=== PATIENT | female | born 1980 | race African-American/Black ===

== ENCOUNTER 2019-11-20 05:55 | Inpatient (IN) | payer MEDICAID, OTHER, SELFPAY ==
--- NOTE | 2019-11-20 04:49 | PDOC.FPROB ---
FMR OB H&P: HPI - History of Present Illness Chief Complaint: rLTCS for AMA, uncontrolled A2GDM, & cHTN in Indentification: History of Present Illness: 39YO @ 37.1 WGA by LMP c/w ? sono presenting for a MARGO rLTCS due to AMA , uncontrolled A2GDM, & cHTN in . Reports feeling well this AM. Denies any VB, LOF or abnormal discharge. + FM. No headache, SOB, chest pain, blurred vision, or LE edema. Primary Care Physician: ROSEMARIE Brown FMR OB H&P: Current - Care : 4 Para: 2011 Gestational age: 37.1 Due date: 12/10/19 Dating Criteria: LMP c/w 9.3 week sono Total weight gain: 36 lbs. Course/Complications: AMA, LGA & breech fetus, uncontrolled A2GDM, cHTN in , Hx SAB, Hx LTCS x2, Rh negative, GBS +, Class 2 obesity - OB Labs Blood type: AB RH: negative Antibody Screen: negative HIV: negative RPR: negative HepBsAg: negative Rubella: immune Quad screen: unknown Urine drug screen: not done Gonorrhea: negative Chlamydia: negative Pap Smear: NILM 3 hour GTT: 2hr GTT: fasting 112, 1hr 227, 2hr 223 A1c: 5.5 on 10/30/19 GBS: positive H&H: 12.4/35.6 on 10/30/19 Platelets: Plt 260 Additional labs: TSH- 1.9 on 06/12/19 Urine Protein:Cr--> 199 on 10/30/19 Cr 0.4 & AST/ALT 06/07 on 10/30/19 - First Trimester Ultrasound First trimester: viable sIUP - Anatomy Survey Anatomy survey: viable male fetus w/ normal anatomy; transverse w/ head to maternal left & LGA w / Hadlock >99%; anterior placenta - Additional Ultrasound Additional: f/u growth US on 11/14/19 97% by Hadlock & transverse with head to maternal right FMR OB H&P: History - Past Medical History PMH: HTN, Class II obesity - OB History OB History: preg #1: SAB @ ~5 WGA preg #2: primary LTCS in 2011 for NRFHTs @ 40 WGA preg #3: rLTCS in 2015 @ 39 WGA - [employer]OS[employer] History [employer] History: No Hx of STIs or abnormal paps - Surgical History Sx History: LTCS x2 - Social History Social History: No TAD. - Family History Family History: Mother- DMII FMR OB H&P: Medications - Current Home Medications: Medication Instructions Recorded Confirmed Type 21/Iron Fu/Folic Acid 1 tablet PO DAILY 01/06/15 11/20/19 History [ Complete Caplet] metFORMIN [Glucophage] 2 tab PO BID 11/20/19 11/20/19 History Allergies/Adverse Reactions: Allergies Allergy/AdvReac Type Severity Reaction Status Date / Time No Known Allergies Allergy Verified 11/20/19 06:32 FMR OB H&P: ROS - Review of Systems General: denies: fever/chills, fatigue Eyes: denies: vision changes, floaters ENT: denies: nasal congestion, rhinorrhea, sore throat Cardiovascular: denies: chest pain, edema Respiratory: denies: cough, shortness of breath Gastrointestinal: denies: abdominal pain, nausea, vomiting Genitourinary (Female): denies: vaginal discharge, vaginal bleeding, contractions Neurologic: denies: headache Integumentary: denies: itching, rash FMR OB H&P: Vital Signs - Maternal Vital signs: WNLs - Heart Tones Baseline: 130 Variability: moderate Acceleration: present Deceleration: absent King contractions every: none noted FMR OB H&P: Physical Exam - Physical Exam General: NAD, awake, alert and oriented HEENT: normocephalic and atraumatic, grossly normal vision, grossly normal hearing Neck: supple, FROM Heart: RRR, normal S1/S2, no murmurs/rubs/gallops General: CTAB, no respiratory distress, good air movement, no rales/rhonchi, no wheezing, no retractions Abdomen: gravid, non-tender Neurological: cranial nerves II through XII intact, sensation to pain,touch and proprioception grossly normal, no focal deficit Skin: no rash, good tugor Psychiatric: intact recent and remote memory, good judgement and insight, normal mood and affect - Pelvic Exam Vulva: normal hair distribution, appropriate jemal stage, no masses, no lesions , no discharge, no blood Membranes: intact Presentation: breech but slightly transverse facing maternal right Estimated Weight: 9 lbs FMR OB H&P: Results - Labs Lab results: H/H 12.9/37.9 Accucheck 90 FMR OB H&P: A/P - Problem List (1) History of delivery, currently Status: Chronic Code(s): O34.219 - MATERNAL CARE FOR UNSP TYPE SCAR FROM PREVIOUS DEL (2) White classification A2 gestational diabetes mellitus (GDM), insulin controlled Status: Acute Code(s): O24.414 - GESTATIONAL DIABETES IN , INSULIN CONTROLLED (3) Chronic hypertension during Status: Chronic Code(s): O10.919 - UNSP PRE-EXISTING HTN COMP , UNSP TRIMESTER (4) LGA (large for gestational age) fetus Status: Acute Code(s): [id number] - (5) Rh negative status during Status: Chronic Code(s): O26.899 - OTH RELATED CONDITIONS, UNSPECIFIED TRIMESTER; Z67.91 - UNSPECIFIED BLOOD TYPE, RH NEGATIVE Qualifiers: Trimester: third trimester Qualified Code(s): O26.893 - Other specified related conditions, third trimester; Z67.91 - Unspecified blood type, Rh negative (6) Obesity, Class II, BMI 35-39.9 Status: Chronic Code(s): E66.9 - OBESITY, UNSPECIFIED (7) Advanced maternal age (AMA), 40 years or greater Status: Chronic Code(s): DMB1208 - (8) Positive GBS test Status: Acute Code(s): B95.1 - STREPTOCOCCUS, GROUP B, CAUSING DISEASES CLASSD ELSWHR (9) History of spontaneous , currently Status: Chronic Code(s): O09.299 - SUPRVSN OF PREG W POOR REPRODCTV OR OBSTET HISTORY, UNSP TRI Disposition: 39YO @ 37.1 WGA presenting for a MARGO rLTCS for AMA, uncontrolled A2GDM & cHTN in . rLTCS @ 37.1 WGA: - Recommended by MFM 2/2 multiple complicating factors as listed above, namely uncontrolled A2GDM with a known LGA fetus. - Last presentation noted in office was breech. Will perform bedside sono prior to operation this AM to reassess presentation & plan for delivery accordingly. Hx LTCS x2: Aware, no evidence of pathology on sonos w/ MFM. Anterior placenta. SAB x1: Aware. Fam hx of Austim (in son): Aware. AMA: Patient has been on ASA since just over 12 WGA & following with MFM this . NIPT declined. ECHO WNL. BMI 40: Obesity Class II. Patient navigator has been following patient outpatient in clinic this . TSH 1.93. Total wt gain 36 lbs. Rh neg: Antibody screen negative x2. Denies trauma or bleeding. Last Rhogam given on 09/24/19. Will need rhogam again within 72 hrs of delivery if Rh + fetus. cHTN: Patient has not been monitoring at home but has been taking ASA for pre-e PPX. Pre-e labs done on 10/30/19 were WNL with prot:cr ratio 0.199. A2GDM: Uncontrolled per minimal BG logs reviewed in the office on metformin 1000 BID & Novolin 15U HS. Repeat A1c 5.5 on 10/30/19. Accucheck on arrival 90. LGA infant: Hadlock >99%tile on anatomy sono with repeat 97%tile on 11/14. GBS positive - No need for intrapartum PPX 2/ delivery. Discussion: Date/Time: 11/20/19 3701 This H&P was discussed with Dr. Lamb who agrees with the above documentation and plan. Addendum - Attending - Attending Attestation Date/Time: 11/20/19 1006 I personally evaluated the patient and discussed the management with Dr. Brown. I agree with the History, Examination, Assessment and Plan documented above with any addition or exceptions noted below. See my note.
[~2019-11-20 05:55] MED LIST: Ondansetron PF 4 MG/2 ML Vial IVP PRN; Promethazine HCl 25 MG/ML VIAL IM PRN; hydrALAZINE 20 MG/ML VIAL SLOW IVP PRN
[2019-11-20] MEDS ORDERED: Bicitra 30 ML UDCUP PO SCH (06:00)
[2019-11-20] MEDS ORDERED: CEFAZOLIN 2 GM in Premix Bag 1 BAG IVPB SCH (06:00)
[2019-11-20 06:30] VITALS: BMI 40.6
[2019-11-20 06:40] LABS: Hemoglobin 12.9 g/dL (12.0-16.0); Mean Corpuscular HGB CONC 34.1 g/dL (32.0-36.0); Mean Corpuscular Hemoglobin 30.9 pg (27.0-31.0); Mean Corpuscular Volume 90.6 fL (78.0-98.0); Mean Platelet Volume 9.3 fL (7.4-10.4); Platelet Count 247 thou/uL (130-400); RBC Distribution Width 13.2 % (11.5-14.5); Red Blood Cell (RBC) Count 4.19 mill/uL (4.20-5.40); White Blood Cell (WBC) Count 7.4 thou/uL (4.8-10.8)
[2019-11-20] MEDS: Lactated Ringer's 1,000 ML IV SCH ×4 (06:40→16:25)
[2019-11-20] MEDS ORDERED: Ondansetron PF 4 MG/2 ML Vial ONE ×2 (07:00→09:33)
[2019-11-20] MEDS ORDERED: MORPHINE 5 MG/10 ML PF VIAL ONE (07:01)
[2019-11-20] MEDS ORDERED: Oxytocin 10 UNITS/ML VIAL ONE (07:01)
[2019-11-20 07:23] LABS: HBSAg Index 0.14 S/CO (0-0.99); Hep B Surf Ag Non-Reactive S/CO (NonReactive); Syphilis Antibody Nonreactive (Nonreactive); Syphilis Antibody Index 0.04 S/CO (<1.00 Non-Reactive)
--- NOTE | 2019-11-20 07:38 | PDOC.BPN ---
- Brief Progress Note @ 37w1d by good dates here for repeat CD. She is doing well this AM, no complaints. Uncontrolled GDM cHTN AMA Oblique, breech, back up on today's POCUS 1. Plan for repeat CD today. r/b/a/i reviewed including pain, bleeding, need for transfusion, infection, damage to bowel, bladder, and other internal organs , need for reoperation and prolonged hospitalization, as well as more morbid complications. 2. Anterior placenta with no reported pathology per prior MFM scans. 3. To OR when ready.
[2019-11-20] MEDS ORDERED: Midazolam HCl 2 mg/2 ml Vial ONE (08:34)
[2019-11-20 08:38] LABS: Actual Bicarbonate (HCO3v) 26 mEq/L (22-28)
[2019-11-20 08:40] LABS: Actual Bicarbonate (HCO3a) 27.3 mEq/L (22-28); Base Excess (BEa) -8.2 mEq/L (-2.0 to +3.0)
[2019-11-20 08:42] LABS: pH (Cord, venous) 7.05 (7.32-7.43)
[2019-11-20] MEDS ORDERED: Naloxone HCl 0.4 mg/ml Vial IVP PRN ×2 (09:18)
[2019-11-20] MEDS ORDERED: Promethazine HCl 25 MG SUPP PR PRN (09:18)
[2019-11-20] MEDS ORDERED: diphenhydrAMINE 50 MG/ML VIAL IVP PRN (09:18)
[2019-11-20] MEDS ORDERED: Ondansetron PF 4 MG/2 ML Vial IVP PRN (09:18)
[2019-11-20] MEDS ORDERED: Naloxone HCl 0.4 mg/ml Vial IV PRN (09:18)
[2019-11-20] MEDS ORDERED: Promethazine HCl 25 MG/ML VIAL IM PRN (09:18)
[2019-11-20] MEDS ORDERED: Ketorolac Tromethamine 30 MG/ML VIAL IVP PRN (09:18)
[2019-11-20] MEDS ORDERED: Communication Order-Pharmacy FS SCH (09:30)
[2019-11-20] MEDS ORDERED: Ketorolac Tromethamine 30 MG/ML VIAL ONE (09:33)
[2019-11-20] MEDS ORDERED: Meperidine HCl/PF 25 MG/ML VIAL ONE (09:46)
[2019-11-20] MEDS ORDERED: Morphine 4 MG/ML VIAL ONE (10:07)
[2019-11-20 10:21] LABS: Hemoglobin 13.1 g/dL (12.0-16.0); Mean Corpuscular HGB CONC 34.4 g/dL (32.0-36.0); Mean Corpuscular Hemoglobin 31.6 pg (27.0-31.0); Mean Platelet Volume 8.9 fL (7.4-10.4); Platelet Count 219 thou/uL (130-400); RBC Distribution Width 13.2 % (11.5-14.5); Red Blood Cell (RBC) Count 4.13 mill/uL (4.20-5.40); White Blood Cell (WBC) Count 12.5 thou/uL (4.8-10.8)
[2019-11-20] MEDS ORDERED: Morphine 4 MG/ML VIAL IV PRN (10:23)
[2019-11-20] MEDS ORDERED: Misoprostol 200 MCG TAB PR PRN (11:41)
[2019-11-20] MEDS ORDERED: Bisacodyl 10 MG SUPP PR PRN (11:41)
[2019-11-20] MEDS ORDERED: Methylergonovine 0.2 MG/ML VIAL IM PRN (11:41)
[2019-11-20] MEDS ORDERED: Methylergonovine 0.2 MG TAB PO PRN (11:41)
[2019-11-20] MEDS ORDERED: Lanolin Ointment 7 GM TUBE TOP PRN (11:41)
[2019-11-20] MEDS ORDERED: NS / Oxytocin 40 units/1000ml 1,000 ML IV SCH (11:41)
--- NOTE | 2019-11-20 12:53 | PDOC.BPN ---
- Brief Progress Note 4 Hour Post-op Note: Radha Dougherty is a 39 year old F now 3 at 37.1 wks 4 hours s/p rLTCS for AMA, uncontrolled A2GDM and cHTN in . She has been doing well since , states that pain is well controlled. Has had 200 cc urine output over the last 2 hours. Denies any fever, chills, n/v, chest pain, dyspnea, palpitations. Expected lochia. Vitals: 97.7, BP 109/62, HR 90, O2 sat 98% on RA HEENT: MMM Heart: RRR no murmurs Lungs: CTAB no wheezes or rales Abdomen: soft, NT, wound vac dressing dry and intact, good uterine tone inferior to umbilicus Recreation Teacher: Lochia as expected Ext: No edema A/P: 39YO @ 37.1 WGA presenting for a MARGO rLTCS for AMA, uncontrolled A2GDM & cHTN in . rLTCS @ 37.1 WGA - continue routine post op care - continue pain control with MARGO motrin and prn Tylenol #3 - monitoring vitals and vaginal bleeding Hx LTCS x2: Aware, no evidence of pathology on sonos w/ MFM. Anterior placenta. SAB x1: Aware. Fam hx of Austim (in son): Aware. AMA: Patient has been on ASA since just over 12 WGA & following with MFM this . NIPT declined. ECHO WNL. BMI 40: Obesity Class II. Patient navigator has been following patient outpatient in clinic this . TSH 1.93. Total wt gain 36 lbs. Rh neg: Antibody screen negative x2. Denies trauma or bleeding. Last Rhogam given on 09/24/19. Will need rhogam again within 72 hrs of delivery if Rh + fetus. cHTN: Patient has not been monitoring at home but has been taking ASA for pre-e PPX. Pre-e labs done on 10/30/19 were WNL with prot:cr ratio 0.199. A2GDM: Uncontrolled per minimal BG logs reviewed in the office on metformin 1000 BID & Novolin 15U HS. Repeat A1c 5.5 on 10/30/19. Accucheck on arrival 90. LGA : Hadlock >99%tile on anatomy sono with repeat 97%tile on 11/14. GBS positive - No need for intrapartum PPX 2/2 delivery.
--- NOTE | 2019-11-20 14:32 | OP ---
DATE OF PROCEDURE: 11/20/2019 RESIDENT SURGEON: Faith Brown MD TEA BAG MACHINE TENDER SURGEON: Dr. Ananya Alvarado, PGY-[address] Karo Pisano, PGY-1. ATTENDING SURGEON: Dean Lamb MD PROCEDURE: Scheduled repeat low transverse section. PREOPERATIVE DIAGNOSES: 1. Term intrauterine . 2. Previous x2. 3. Controlled A2 gestational diabetes mellitus. 4. Chronic hypertension in . 5. LGA transverse breech fetus. 6. History of spontaneous x1. 7. Obesity. 8. GBS positive status. 9. Rh negative status. 10. Advanced maternal age. POSTOPERATIVE DIAGNOSES: 1. Term intrauterine . 2. Previous x2. 3. Controlled A2 gestational diabetes mellitus. 4. Chronic hypertension in . 5. TAGA transverse breech fetus. 6. History of spontaneous x1. 7. Obesity. 8. GBS positive status. 9. Rh negative status. 10. Advanced maternal age. ANESTHESIA: Spinal. INDICATIONS: The patient is a 39-year-old, G4, P2-1-0-2 at 37.1 weeks' gestation, who presents for repeat scheduled for advanced maternal age, uncontrolled A2 gestational diabetes with an LGA fetus, and chronic hypertension in . PROCEDURE IN DETAIL: After risks, benefits, and alternatives were explained to the patient, she gave informed consent. Preoperative antibiotics included cefazolin 2 g IV. The patient was taken to the operating room, and spinal anesthesia was initiated. She was placed in a supine position with a left tilt and prepped and draped in the usual sterile fashion. A Pfannenstiel incision was made with scalpel and carried down to the level of the fascia, which was sharply nicked. The fascial edges were extended bilaterally with Reddy scissors. Inferior and superior edges of the cut fascial edges were elevated with Ric clamps, and the underlying rectus muscles were sharply and bluntly dissected free. The recti were then divided digitally and retracted manually. The peritoneum was entered bluntly and retracted manually. Of note, extensive lysis of adhesions both bluntly and with electrocautery was required upon entry of the fascial layer all the way down to the anterior peritoneal layer. Upin entry into the peritoneum the bladder was identified and the bladder blade was placed. A low transverse score was then made with a scalpel, and the uterus was entered in the midline with scalpel. A large amount of clear fluid was seen. Hysterotomy was extended manually in cephalad and caudal manner. was noted to be breech and was delivered feet first by fundal pressure. Nuchal cord x1 was noted. Cord was then clamped and cut and grossly normal male was handed to waiting nurse. Cord blood was obtained, and a section of cord was sent for cord gas analysis. Placenta was manually extracted, found to be intact with three- vessel cord and discarded. The uterus was closely examined, and the bladder blade was replaced. The uterus was then closed using a running locking #1 Monocryl suture. Following this, adhesed sites were closely examined and, after electrocautery, hemostasis of the hysterotomy and adhesed sites were noted. The abdomen was then irrigated with saline and suctioned free of clots, and the hysterotomy was again noted to be hemostatic. The fascia was closed with a running nonlocking 0 PDS suture. The subcutaneous tissue was irrigated and there were no free bleeders. Then, the subcutaneous tissue was closed using a running nonlocking horizontal 2-0 chromic suture. The skin was approximated with tara, and a wound VAC was placed. All counts were correct. The patient tolerated the procedure well and was taken to the recovery room in stable condition. ESTIMATED BLOOD LOSS: 800 mL. COMPLICATIONS: Extensive lysis of adhesions requiring electrocautery for hemostasis. SPECIMENS: Cord blood and cord sections sent to lab for blood type and cord gas analysis. FINDINGS: 1. Grossly normal male with Apgars of 1, 7, and 8 respectively. 2. Grossly normal placenta with three-vessel cord discarded. DRAINS: [place] to gravity draining clear urine. Job ID: [id number] [facility]
[2019-11-20] MEDS: diphenhydrAMINE 25 MG CAP PO PRN (18:14)
[2019-11-20] MEDS ORDERED: Acetaminophen/Codeine 30-300mg Tablet PO PRN (21:30)
[2019-11-21] MEDS: Docusate Calcium (SURFAK) 240 MG CAP PO SCH ×3 (00:19→21:33)
[2019-11-21] MEDS: Ferrous Sulfate 325 MG TAB PO SCH ×2 (00:19→08:41)
[2019-11-21] MEDS: diphenhydrAMINE 25 MG CAP PO PRN (00:29)
[2019-11-21] MEDS: Simethicone Chewable 80 MG TAB PO PRN ×2 (05:47→21:32)
[2019-11-21] MEDS: Lactated Ringer's 1,000 ML IV SCH (05:54)
[2019-11-21 05:58] LABS: Hemoglobin 11.6 g/dL (12.0-16.0); Mean Corpuscular HGB CONC 33.2 g/dL (32.0-36.0); Mean Corpuscular Hemoglobin 30.5 pg (27.0-31.0); Mean Corpuscular Volume 91.9 fL (78.0-98.0); Mean Platelet Volume 8.8 fL (7.4-10.4); Platelet Count 251 thou/uL (130-400); RBC Distribution Width 13.2 % (11.5-14.5); Red Blood Cell (RBC) Count 3.81 mill/uL (4.20-5.40); White Blood Cell (WBC) Count 10.4 thou/uL (4.8-10.8)
--- NOTE | 2019-11-21 06:07 | PDOC.OBPPN ---
FMR OB PN: Subj - Interval History Hospital Day: 2 Day: 1 Chief Complaint: None Indentification: Interval History: PP day #1 s/p rLTCS w/ PPH. FMR OB PN: Obj - Maternal Vital signs: BP: 114/57 HR: 98 RR: 18 Tmax: 99.4F Pox: 95% on RA Wt: 110.677 kg - Urine output I&O: 11/19/19 11/20/19 11/21/19 06:59 06:59 06:59 Intake Total 1295 Output Total 2397 Balance -1102 - Lochia Lochia: normal - Pain Management Pain scale: 5 Intervention: oral medication FMR OB PN: Exam - Physical Exam General: NAD, awake, alert and oriented HEENT: normocephalic and atraumatic, grossly normal vision, grossly normal hearing Neck: supple, FROM Heart: RRR, normal S1/S2, no murmurs/rubs/gallops, pulses present, no edema General: CTAB, no respiratory distress, good air movement, no rales/rhonchi, no wheezing, no retractions Abdomen: soft, fundus(cm) (firm at umbilicus & appropriately tender), bowel sound present Musculoskeletal: FROM in all four extremities Neurological: sensation to pain,touch and proprioception grossly normal, no focal deficit Skin: no rash, good tugor : bandage intact, no erythema, no edema, appropriately tender, other ( wound vac in place) Psychiatric: intact recent and remote memory, good judgement and insight, normal mood and affect - Pelvic Exam : no discharge, normal lochia FMR OB PN: Data - Labs Lab results: Laboratory Results - last 24 hr 11/20/19 11/20/19 11/20/19 06:16 06:16 06:16 WBC RBC Hgb Hct MCV MCH MCHC RDW Plt Count MPV Bicarbonate Actual ABG Base Excess VBG HCO3 VBG Base Excess Cord ABG pH Cord ABG PCO2 (Kasey) Cord VBG pH Cord VBG pCO2 POC Glucose Syphilis IgG/IgM Ab Nonreactive Hep Bs Antigen Non-Reactive Blood Type AB NEGATIVE Antibody Screen NEGATIVE Crossmatch See Detail 11/20/19 11/20/19 11/20/19 06:16 07:28 08:15 WBC 7.4 RBC 4.19 L Hgb 12.9 Hct 37.9 MCV 90.6 MCH 30.9 MCHC 34.1 RDW 13.2 Plt Count 247 MPV 9.3 Bicarbonate Actual ABG Base Excess VBG HCO3 26 VBG Base Excess -8.0 L Cord ABG pH Cord ABG PCO2 (Kasey) Cord VBG pH 7.05 L* Cord VBG pCO2 95.6 H* POC Glucose 90 Syphilis IgG/IgM Ab Hep Bs Antigen Blood Type Antibody Screen Crossmatch 11/20/19 11/20/19 11/21/19 08:47 10:08 05:42 WBC 12.5 H 10.4 RBC 4.13 L 3.81 L Hgb 13.1 11.6 L Hct 38.0 35.1 L MCV 92.0 91.9 MCH 31.6 H 30.5 MCHC 34.4 33.2 RDW 13.2 13.2 Plt Count 219 251 MPV 8.9 8.8 Bicarbonate Actual 27.3 ABG Base Excess -8.2 L VBG HCO3 VBG Base Excess Cord ABG pH 6.983 L* Cord ABG PCO2 (Kasey) 117.6 H* Cord VBG pH Cord VBG pCO2 POC Glucose Syphilis IgG/IgM Ab Hep Bs Antigen Blood Type Antibody Screen Crossmatch FMR OB PN: A/P - Problem List (1) History of delivery, currently Status: Chronic Code(s): O34.219 - MATERNAL CARE FOR UNSP TYPE SCAR FROM PREVIOUS DEL (2) White classification A2 gestational diabetes mellitus (GDM), insulin controlled Status: Acute Code(s): O24.414 - GESTATIONAL DIABETES IN , INSULIN CONTROLLED (3) Chronic hypertension during Status: Chronic Code(s): O10.919 - UNSP PRE-EXISTING HTN COMP , UNSP TRIMESTER (4) LGA (large for gestational age) fetus Status: Acute Code(s): [id number] - (5) Rh negative status during Status: Chronic Code(s): O26.899 - OTH RELATED CONDITIONS, UNSPECIFIED TRIMESTER; Z67.91 - UNSPECIFIED BLOOD TYPE, RH NEGATIVE Qualifiers: Trimester: third trimester Qualified Code(s): O26.893 - Other specified related conditions, third trimester; Z67.91 - Unspecified blood type, Rh negative (6) Obesity, Class II, BMI 35-39.9 Status: Chronic Code(s): E66.9 - OBESITY, UNSPECIFIED (7) Advanced maternal age (AMA), 40 years or greater Status: Chronic Code(s): [id number] - (8) Positive GBS test Status: Acute Code(s): B95.1 - STREPTOCOCCUS, GROUP B, CAUSING DISEASES CLASSD ELSWHR (9) History of spontaneous , currently Status: Chronic Code(s): O09.299 - SUPRVSN OF PREG W POOR REPRODCTV OR OBSTET HISTORY, UNSP TRI Disposition: 39YO G4 now [id number] who is PP day #1 s/p rLTCS for AMA, uncontrolled A2GDM & cHTN in @ 37.1 WGA. PP day #1 s/p rLTCS @ 37.1 WGA - VS WNLs, pain well controlled on PO meds, dc removed this AM & voiding normally. Encourage early continued ambulation & continue routine post-op/PP care. PPH: - QBL since delivery of 1047mL but Hgb only down ~1 point from admission this AM. Will continue to monitor VS & bleeding closely. Hx LTCS, now x3: Aware, no evidence of pathology on sonos w/ MFM. Anterior placenta. Desires copper IUD for contraception as does not desire any subsequent pregnancies. SAB x1: Aware. Fam hx of Austim (in son): Aware. AMA: Patient has been on ASA since just over 12 WGA & following with MFM this . NIPT declined. ECHO WNL. BMI 40: Patient navigator has been following patient outpatient in clinic this . TSH 1.93. Total wt gain 36 lbs. [place] wound dressing in place to reduce risk of SSI. Will consider lovenox for VTE PPX as well especially in the setting of an additional high risk VTE factor of PPH. Rh neg: Antibody screen negative x2. Denies trauma or bleeding. Last Rhogam given on 09/24/19. also RH - so no need for PP Rhogam. cHTN: Patient has not been monitoring at home but was taking ASA for pre-e PPX. Pre-e labs done on 10/30/19 were WNL with prot:cr ratio 0.199. BPs WNLs since admission, will continue to monitor. A2GDM: Uncontrolled per minimal BG logs reviewed in the office on metformin 1000 BID & Novolin 15U HS. Repeat A1c 5.5 on 10/30/19. Accucheck on arrival 90. Resume regular diet as tolerated today but will need PP DMII screening @ 4-6 weeks. LGA infant: Aware. Hadlock >99%tile on anatomy sono with repeat 97%tile on . Actually TAGA upon weight check. GBS positive - Aware, no intrapartum PPX given 2/2 delivery. Discussion: Date/Time: 11/21/19 0605 This H&P was discussed with Dr. Lamb who agrees with the above documentation and plan. Addendum - Attending - Attending Attestation Date/Time: 11/21/19 3383 I personally evaluated the patient and discussed the management with the team. I agree with the History, Examination, Assessment and Plan documented above with any addition or exceptions noted below.
[2019-11-21] MEDS ORDERED: Acetaminophen/Codeine 30-300mg Tablet PO PRN (06:08)
[2019-11-21] MEDS: Prenatal Vitamin 1 TAB PO SCH (08:41)
[2019-11-21] MEDS: Ibuprofen 800 MG TAB PO SCH ×2 (14:31→21:33)
[2019-11-22] MEDS: Ferrous Sulfate 325 MG TAB PO SCH ×3 (01:41→21:04)
[2019-11-22] MEDS: Simethicone Chewable 80 MG TAB PO PRN ×2 (06:09→21:00)
[2019-11-22] MEDS: Ibuprofen 800 MG TAB PO SCH ×3 (06:10→20:59)
--- NOTE | 2019-11-22 06:25 | PDOC.OBPPN ---
FMR OB PN: Subj - Interval History Hospital Day: 3 Day: 2 Chief Complaint: None Indentification: 39YO who is PP day #2 s/p rLTCS for A2GDM, AMA, & cHTN in preg. Interval History: NAEO. Patient recovering well since surgery. FMR OB PN: Obj - Maternal Vital signs: BP: 113/59 HR: 87 RR: 18 Tmax: 97.7F Pox: 98% on RA Wt: 110.677 kg - Urine output I&O: 11/20/19 11/21/19 11/22/19 06:59 06:59 06:59 Intake Total 2318 Output Total 3004 1200 Balance -996 -1200 - Lochia Lochia: normal - Pain Management Pain scale: 4 Intervention: oral medication FMR OB PN: Exam - Physical Exam General: NAD, awake, alert and oriented HEENT: MMM, grossly normal vision, grossly normal hearing Neck: supple, FROM Heart: RRR, normal S1/S2, pulses present, no edema General: CTAB, no respiratory distress, good air movement, no rales/rhonchi, no wheezing, no retractions Abdomen: soft, fundus(cm) (firm @ umbilicus), bowel sound present, other ( appropriately TTP) Musculoskeletal: FROM in all four extremities Neurological: cranial nerves II through XII intact, sensation to pain,touch and proprioception grossly normal, no focal deficit Skin: no rash, good tugor : incision healing well, no drainage Psychiatric: intact recent and remote memory, good judgement and insight, normal mood and affect - Pelvic Exam : normal lochia FMR OB PN: A/P - Problem List (1) History of delivery, currently Status: Chronic Code(s): O34.219 - MATERNAL CARE FOR UNSP TYPE SCAR FROM PREVIOUS DEL (2) White classification A2 gestational diabetes mellitus (GDM), insulin controlled Status: Acute Code(s): O24.414 - GESTATIONAL DIABETES IN , INSULIN CONTROLLED (3) Chronic hypertension during Status: Chronic Code(s): O10.919 - UNSP PRE-EXISTING HTN COMP , UNSP TRIMESTER (4) LGA (large for gestational age) fetus Status: Acute Code(s): [id number] - (5) Rh negative status during Status: Chronic Code(s): O26.899 - OTH RELATED CONDITIONS, UNSPECIFIED TRIMESTER; Z67.91 - UNSPECIFIED BLOOD TYPE, RH NEGATIVE Qualifiers: Trimester: third trimester Qualified Code(s): O26.893 - Other specified related conditions, third trimester; Z67.91 - Unspecified blood type, Rh negative (6) Obesity, Class II, BMI 35-39.9 Status: Chronic Code(s): E66.9 - OBESITY, UNSPECIFIED (7) Advanced maternal age (AMA), 40 years or greater Status: Chronic Code(s): [id number] - (8) Positive GBS test Status: Acute Code(s): B95.1 - STREPTOCOCCUS, GROUP B, CAUSING DISEASES CLASSD ELSWHR (9) History of spontaneous , currently Status: Chronic Code(s): O09.299 - SUPRVSN OF PREG W POOR REPRODCTV OR OBSTET HISTORY, UNSP TRI Disposition: 39YO G4 now P3013 who is PP day #2 s/p rLTCS for AMA, uncontrolled A2GDM & cHTN in @ 37.1 WGA. PP day #2 s/p rLTCS @ 37.1 WGA - VS WNLs, pain well controlled on PO meds, tolerating PO and ambulating & voiding normally. Breast feeding well. Continue routine PP care. PPH: - QBL since delivery of 1047mL w/ stable VS & no documented significant bleeding since. Continue PNVs & monitoring VS closely. Hx LTCS, now x3: Aware, no evidence of pathology on sonos w/ MFM. Anterior placenta. Desires copper IUD for contraception as does not desire any subsequent pregnancies. SAB x1: Aware. Fam hx of Austim (in son): Aware. AMA: Patient has been on ASA since just over 12 WGA & following with MFM this . NIPT declined. ECHO WNL. BMI 40: Patient navigator has been following patient outpatient in clinic this . TSH 1.93. Total wt gain 36 lbs. [place] wound dressing in place to reduce risk of SSI. Will consider lovenox for VTE PPX as well especially in the setting of an additional high risk VTE factor of PPH. Rh neg: Antibody screen negative x2. Denies trauma or bleeding. Last Rhogam given on 09/24/19. also RH - so no need for PP Rhogam. cHTN: Patient has not been monitoring at home but was taking ASA for pre-e PPX. Pre-e labs done on 10/30/19 were WNL with prot:cr ratio 0.199. BPs WNLs since admission, will continue to monitor. A2GDM: Uncontrolled per minimal BG logs reviewed in the office on metformin 1000 BID & Novolin 15U HS. Repeat A1c 5.5 on 10/30/19. Accucheck on arrival 90. Resume regular diet as tolerated today but will need PP DMII screening @ 4-6 weeks. LGA infant: Aware. [place] >99%tile on anatomy sono with repeat 97%tile on . Actually TAGA infant upon weight check following delivery. GBS positive - Aware, no intrapartum PPX given 10/27 delivery. Dispo: Anticipate likely d/c home later today vs. tomorrow pending infant's clinical course. Discussion: Date/Time: 11/22/19 0603 This H&P was discussed with Dr. Lamb who agrees with the above documentation and plan. Addendum - Attending - Attending Attestation Date/Time: 11/24/19 6386 I personally evaluated the patient and discussed the management with the team on day of service. I agree with the History, Examination, Assessment and Plan documented above with any addition or exceptions noted below.
[2019-11-22] MEDS: Docusate Calcium (SURFAK) 240 MG CAP PO SCH ×2 (09:03→20:59)
[2019-11-22] MEDS: Prenatal Vitamin 1 TAB PO SCH (09:03)
[2019-11-22] MEDS: Acetaminophen/Codeine 30-300mg Tablet PO PRN (13:35)
[2019-11-22] MEDS ORDERED: Milk Of Magnesia 30 ML UDCUP PO SCH (21:30)
[2019-11-23] MEDS: Ibuprofen 800 MG TAB PO SCH ×2 (05:06→13:53)
[2019-11-23] MEDS: Acetaminophen/Codeine 30-300mg Tablet PO PRN (05:07)
--- NOTE | 2019-11-23 07:55 | PDOC.OBPPN ---
FMR OB PN: Subj - Interval History Hospital Day: 4 Day: 3 Chief Complaint: None Indentification: PP day #3 s/p rLTCS for AMA, A2GDM & cHTN in . Interval History: Routine PP course FMR OB PN: Obj - Maternal Vital signs: BP: 102/84 HR: 90 RR: 16 Tmax: 98.6F Pox: 99% on RA Wt: 110 kg - Urine output I&O: 11/22/19 11/23/19 11/24/19 06:59 06:59 06:59 Intake Total 1000 Output Total 1200 Balance -200 - Lochia Lochia: normal - Pain Management Intervention: oral medication FMR OB PN: Exam - Physical Exam General: NAD, awake, alert and oriented HEENT: normocephalic and atraumatic, grossly normal vision, grossly normal hearing Neck: supple, FROM Heart: RRR, normal S1/S2, no murmurs/rubs/gallops, pulses present, no edema General: CTAB, no respiratory distress, good air movement, no rales/rhonchi, no wheezing, no retractions Abdomen: soft, fundus(cm) (firm at umbilicus), bowel sound present Musculoskeletal: FROM in all four extremities Neurological: cranial nerves II through XII intact, sensation to pain,touch and proprioception grossly normal, no focal deficit Skin: no rash, good tugor : incision healing well, no drainage, other ([place] wound vac in place w /o leakage or drainage noted) Psychiatric: intact recent and remote memory, good judgement and insight, normal mood and affect - Pelvic Exam : normal lochia FMR OB PN: A/P - Problem List (1) History of delivery, currently Status: Chronic Code(s): O34.219 - MATERNAL CARE FOR UNSP TYPE SCAR FROM PREVIOUS DEL (2) White classification A2 gestational diabetes mellitus (GDM), insulin controlled Status: Acute Code(s): O24.414 - GESTATIONAL DIABETES IN , INSULIN CONTROLLED (3) Chronic hypertension during Status: Chronic Code(s): O10.919 - UNSP PRE-EXISTING HTN COMP , UNSP TRIMESTER (4) LGA (large for gestational age) fetus Status: Acute Code(s): [id number] - (5) Rh negative status during Status: Chronic Code(s): O26.899 - OTH RELATED CONDITIONS, UNSPECIFIED TRIMESTER; Z67.91 - UNSPECIFIED BLOOD TYPE, RH NEGATIVE Qualifiers: Trimester: third trimester Qualified Code(s): O26.893 - Other specified related conditions, third trimester; Z67.91 - Unspecified blood type, Rh negative (6) Obesity, Class II, BMI 35-39.9 Status: Chronic Code(s): E66.9 - OBESITY, UNSPECIFIED (7) Advanced maternal age (AMA), 40 years or greater Status: Chronic Code(s): [id number] - (8) Positive GBS test Status: Acute Code(s): B95.1 - STREPTOCOCCUS, GROUP B, CAUSING DISEASES CLASSD ELSWHR (9) History of spontaneous , currently Status: Chronic Code(s): O09.299 - SUPRVSN OF PREG W POOR REPRODCTV OR OBSTET HISTORY, UNSP TRI Disposition: 39YO G4 now P3013 who is PP day #3 s/p rLTCS for AMA, uncontrolled A2GDM & cHTN in @ 37.1 WGA. PP day #3 s/p rLTCS @ 37.1 WGA - VS WNLs, pain well controlled on PO meds, tolerating PO and ambulating & voiding normally. Breast feeding well. Continue routine PP care. PPH: - QBL since delivery of 1047mL w/ stable VS & no documented significant bleeding since. Continue PNVs & monitoring VS closely. Hx LTCS, now x3: Aware, no evidence of pathology on sonos w/ MFM. Anterior placenta. Desires copper IUD for contraception as does not desire any subsequent pregnancies. SAB x1: Aware. Fam hx of Austim (in son): Aware. AMA: Patient has been on ASA since just over 12 WGA & following with MFM this . NIPT declined. ECHO WNL. BMI 40: Patient navigator has been following patient outpatient in clinic this . TSH 1.93. Total wt gain 36 lbs. [place] wound dressing in place to reduce risk of SSI. Rh neg: Antibody screen negative x2. Denies trauma or bleeding. Last Rhogam given on 09/24/19. also RH - so no need for PP Rhogam. cHTN: Patient has not been monitoring at home but was taking ASA for pre-e PPX. Pre-e labs done on 10/30/19 were WNL with prot:cr ratio 0.199. BPs WNLs since admission, will continue to monitor. A2GDM: Uncontrolled per minimal BG logs reviewed in the office on metformin 1000 BID & Novolin 15U HS. Repeat A1c 5.5 on 10/30/19. Accucheck on arrival 90. Resume regular diet as tolerated today but will need PP DMII screening @ 4-6 weeks. LGA infant: Aware. [place] >99%tile on anatomy sono with repeat 97%tile on . Actually TAGA infant upon weight check following delivery. GBS positive - Aware, no intrapartum PPX given 10/27 delivery. Dispo: D/c home today with close f/u at [facility] on 11/27/19 for [place] removal. Discussion: Date/Time: 11/23/19 8208 This H&P was discussed with Dr. Begum who agrees with the above documentation and plan. Addendum - Attending - Attending Attestation Date/Time: 11/23/19 6887 I personally evaluated the patient and discussed the management with Dr. Brown. I agree with the History, Examination, Assessment and Plan documented above with any addition or exceptions noted below.
[2019-11-23] MEDS: Ferrous Sulfate 325 MG TAB PO SCH (07:59)
[2019-11-23] MEDS: Docusate Calcium (SURFAK) 240 MG CAP PO SCH (07:59)
[2019-11-23] MEDS: Prenatal Vitamin 1 TAB PO SCH (07:59)
[2019-11-23 09:01] VITALS: BP 112/59; TEMP 98
== END 2019-11-23 17:30 | disposition home or self-care (01) | DRG 787 ==
LOC: L&D 05:55 → 3SW 13:15
PROVIDERS: ADMIT Student in an Organized Health Care Education/Training Program; ATTEND Student in an Organized Health Care Education/Training Program
PROC: 10D00Z1 Extraction of Products of Conception, Low, Open Approach (ICD-10-PCS; principal; 2019-11-20)
PROC: 0DNW0ZZ Release Peritoneum, Open Approach (ICD-10-PCS; 2019-11-20)
DX: O34.211 Maternal care for low transverse scar from previous cesarean delivery (principal); O10.92 Unspecified pre-existing hypertension complicating childbirth; O72.2 Delayed and secondary postpartum hemorrhage; Z3A.37 37 weeks gestation of pregnancy; Z37.0 Single live birth; O36.63X0 Maternal care for excessive fetal growth, third trimester, not applicable or unspecified; O99.214 Obesity complicating childbirth; E66.9 Obesity, unspecified; O99.824 Streptococcus B carrier state complicating childbirth; O24.425 Gestational diabetes mellitus in childbirth, controlled by oral hypoglycemic drugs; O26.893 Other specified pregnancy related conditions, third trimester; O32.1XX0 Maternal care for breech presentation, not applicable or unspecified; O99.62 Diseases of the digestive system complicating childbirth; K66.0 Peritoneal adhesions (postprocedural) (postinfection); Z67.31 Type AB blood, Rh negative
CPT/HCPCS: 36415; 36416; 51702; 76815; 82805; 85027; 86780; 86850; 86900; 86901; 87340; J1885; J2175; J2250; J2270; J2274; J2405; J2590; Q0163